=== PATIENT | female | born 1990 | race Caucasian/White ===

== ENCOUNTER 2018-09-02 08:42 | Inpatient (IN) | payer OTHER ==
[2018-09-02] MEDS ORDERED: Lactated Ringer's 1,000 ML IV SCH (09:00)
[2018-09-02 10:47] LABS: BASO # 0.1 K/uL (0.0-0.2); BASO % 0.8 % (0.0-2.0); EOS # 0.1 K/uL (0.0-0.7); EOS % 0.6 % (0.0-4.0); HEMOGLOBIN 11.2 g/dL (11.0-16.0); LYMPH # 2.6 K/uL (1.0-4.3); MEAN CORPUSCULAR HEMOGLOBIN 28.3 pg (27.0-31.0); MEAN CORPUSCULAR HGB CONC 32.9 g/dL (33.0-37.0); MEAN PLATELET VOLUME 8.5 fL (7.2-11.7); MONO # 0.6 K/uL (0.0-0.8); MONO % 6.1 % (0.0-10.0); NEUT # 6.5 K/uL (1.8-7.0); NEUT % 66.5 % (50.0-75.0); RBC 3.95 Mil/uL (3.80-5.20); RED CELL DISTRIBUTION WIDTH 20.6 % (11.5-14.5); WHITE BLOOD COUNT 9.8 K/uL (4.8-10.8)
[2018-09-02 10:48] LABS: URINE BACTERIA RARE (<OCC); URINE BILIRUBIN NEGATIVE (NEGATIVE); URINE BLOOD NEGATIVE (NEGATIVE); URINE CLARITY Clear (Clear); URINE COLOR Straw (YELLOW); URINE GLUCOSE (UA) NORMAL (Normal); URINE LEUKOCYTE ESTERASE TRACE Leu/uL (Negative); URINE PROTEIN NEGATIVE (NEGATIVE); URINE UROBILINOGEN NORMAL mg/dL (0.2-1.0)
[2018-09-02 11:27] LABS: ALBUMIN 3.4 g/dL (3.5-5.0); ALT/SGPT 14 U/L (9-52); AST/SGOT 15 U/L (14-36); BLOOD UREA NITROGEN 5 mg/dL (7-17); GFR NON-AFRICAN AMERICAN > 60
[2018-09-02] MEDS ORDERED: Nalbuphine HCL 10 mg/ml Ampule IVP ONE (15:34)
[2018-09-02] MEDS ORDERED: DiphenhydrAMINE 50 mg/ml Inj IVP STA (15:52)
[2018-09-02] MEDS ORDERED: Oxytocin 30 UNIT 30 UNITS/500 ML BAG IV SCH (19:30)
[2018-09-02] MEDS ORDERED: Bupivacaine HCl/FentaNYL Cit 100 ML EPI ONE (19:51)
[2018-09-02] MEDS ORDERED: Oxytocin 30 UNIT 30 UNITS/500 ML BAG IV ONE (21:11)
[2018-09-03] MEDS ORDERED: Bupivacaine HCl/FentaNYL Cit 100 ML EPI ONE ×3 (03:10→14:23)
--- NOTE | 2018-09-03 09:38 | OBHP ---
Datetime: 09/03/2018 09:37 FHR - Baseline A Provider: 130 Vital Signs Provider: Reviewed; Within Normal Limits NICHD Variability Prov Fetus A: Moderate 6-25bpm FHR Category Provider Fetus A: Category I Dilatation, Provider: 1 Datetime: 09/02/2018 09:20 IP Adm Impression: Term, intrauterine IP Chief Complaint Other: Oligo IP Admit Plan: Admit to unit Admit Comment, IP Provider: Patient is a 28 year old at 38w1d ARSEN 09/15/18 who presents toda y for uterine contractions that started 2 days ago. Patient states that last night contractions were getting stronger and are now 5 minutes apart 07/07 intesnty. She endorses +FM, denies VB or LOF. Issues: Denies OB Hx: 1. 2013 at term, female , unsure of baby's weight, no complications 2. 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, CXR -Plan discussed with Dr Efra Barry DO PGY-2 agree with above pt seen adn examiend sonogram katie 4.3cm, iol for oligoydration cervidl placed then spotnenaousl feel out pt had new cervidli reisrted removed s/p iv pain medciaiton pitocin started s/p pediural cat I Comments, ACOG Physical Exam: VSS Gen: AAOx3 Abd: Soft, gravid Ext: No clubbing, cyanosis, edema SVE: FT/50/-3 Bedsie sonogam vtx, afti 4.3cm IP Hx Assessment: The History has been Reviewed and is Current EGA AdmitDate IP: 38.1 IP Chief Complaint: Uterine contractions; Other NICHD Accel Fetus A IP Provider: 15X15 NICHD Decel Fetus A IP Provider: None Effacement, Provider: 50 Station, Provider: -3
--- NOTE | 2018-09-03 09:41 | OBPN ---
Datetime: 09/03/2018 09:37 IP Procedures: Artificial ROM IP Progress Plan: Continue present management Membranes, Provider: Ruptured Amniotic Fluid Color, Provider: Clear Contraction Comments Provider: q 2 min FHR - Baseline A Provider: 130 Gestation - Est Wks by US: 38.2 Presentation-Admit: Vertex IP Progress Note Comment: pt seen and examiend fo rprogression of laobr s/p epidural VSS VE: /-3 AROM clear IUPC inserted Pitocin as per protoicn _ a/p G2P! @ 38+ wks IOL for oligohdatin cont current mananete Vital Signs Provider: Reviewed; Within Normal Limits FHR Category Provider Fetus A: Category I NICHD Variability Prov Fetus A: Moderate 6-25bpm Dilatation, Provider: 1 Effacement, Provider: 50 Station, Provider: -3 NICHD Decel Fetus A IP Provider: None Datetime: 09/02/2018 09:20 NICHD Accel Fetus A IP Provider: 15X15
--- NOTE | 2018-09-03 09:41 | OBADHP ---
Datetime: 09/03/2018 09:37 Presentation-Admit: Vertex FHR - Baseline A Provider: 130 Amniotic Fluid Color, Provider: Clear Membranes, Provider: Ruptured Contraction Comments Provider: q 2 min Gestation - Est Wks by US: 38.2 Vital Signs Provider: Reviewed; Within Normal Limits NICHD Variability Prov Fetus A: Moderate 6-25bpm FHR Category Provider Fetus A: Category I NICHD Decel Fetus A IP Provider: None Dilatation, Provider: 1 Effacement, Provider: 50 Station, Provider: -3 Datetime: 09/02/2018 09:20 IP Chief Complaint Other: Oligo Admit Comment, IP Provider: Patient is a 28 year old at 38w1d ARSEN 09/15/18 who presents toda y for uterine contractions that started 2 days ago. Patient states that last night contractions were getting stronger and are now 5 minutes apart 07/07 intesnty. She endorses +FM, denies VB or LOF. Issues: Denies OB Hx: 1. 2013 at term, female , unsure of baby's weight, no complications 2. 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, CXR -Plan discussed with Dr Efra Barry DO PGY-2 agree with above pt seen adn examiend sonogram katie 4.3cm, iol for oligoydration cervidl placed then spotnenaousl feel out pt had new cervidli reisrted removed s/p iv pain medciaiton pitocin started s/p pediural cat I Comments, ACOG Physical Exam: VSS Gen: AAOx3 Abd: Soft, gravid Ext: No clubbing, cyanosis, edema SVE: FT/50/-3 Bedsie sonogam vtx, afti 4.3cm IP Hx Assessment: The History has been Reviewed and is Current IP Chief Complaint: Uterine contractions; Other NICHD Accel Fetus A IP Provider: 15X15 EGA AdmitDate IP: 38.1 IP Adm Impression: Term, intrauterine IP Admit Plan: Admit to unit
--- NOTE | 2018-09-03 11:52 | OBPN ---
Datetime: 09/03/2018 11:38 IP Progress Plan: Continue present management Membranes, Provider: Ruptured FHR - Baseline A Provider: 130 Gestation - Est Wks by US: 38.2 Presentation-Admit: Vertex IP Progress Note Comment: pt seen and examiend for progressn of labor c/o pressures/p peidurla VSS VE /-3 arom clear IUPC <200monteviod units Pitocn 14mu/min A/P G2P! @ 38+ wks in labor cont pitocin per fprotocn cont too nad em anlagyeg Vital Signs Provider: Reviewed; Within Normal Limits NICHD Variability Prov Fetus A: Moderate 6-25bpm Dilatation, Provider: 3 Effacement, Provider: 60 Station, Provider: -3 NICHD Decel Fetus A IP Provider: None
[2018-09-03] MEDS ORDERED: Bupivacaine HCl 0.25% PF (10 ml) Inj ONE ×2 (14:26→16:40)
[2018-09-03] MEDS ORDERED: Oxytocin 30 UNIT 30 UNITS/500 ML BAG IV ONE (15:44)
[2018-09-03] MEDS ORDERED: Benzocaine/Menthol 20%-0.5% Topical Spray (60 ml) TOP PRN (18:56)
[2018-09-03] MEDS ORDERED: Oxycodone/Acetaminophen 5/325 mg Tab PO PRN ×2 (18:56)
--- NOTE | 2018-09-03 19:01 | OBDS ---
DELIVERY PERSONNEL Delivery Doctor: Elizabet Newman MD Scrub Nurse: Valencia Tiwari Edging Machine Setter: Federica Beverly RN Anesthesiologist: Deyvi Dixon MD MATERNAL INFORMATION Delivery Anesthesia: Epidural Medications in Delivery: Pitocin RN Comments: to a live baby girl to mother bare abdomen attended to by dr. Rosales and Tereza Jean-Baptiste RN. 9:9. Provider Comments: pt was fully dilated and pushing. verbal consent give for right mediolateral epis tiomy. atrumatic, sponatneous delivery of head in BRITNI position.Nuchal cord noted x 1 reduced. Atrauat aguilar, spontaneous delivery of anterior followed by posterior shoulder followed by delivery of the body . Both oral and nasal passages of the baby were bulb suctioned. umbilcal cord was clamped adn cut adn baby was handed to [facility] on abdomen with RN assistance. Cord blood and cord gases collectd and sent x 2. Spontaneous delivery of intact placenta with membranes. Fundus firm, good hemostasis. Right me diolateral epistiomy noted and repaired with 2-0 hcormic. .No complications live female apgars 9,9 ebl 200ml weight 5lbs ounces no complications LABOR SUMMARY EDC: 09/15/2018 00:00 No. Babies in Womb: 1 Attempted: No Labor Anesthesia: Epidural LABOR INFORMATION Onset of Labor: 09/03/2018 09:00 Complete Dilatation: 09/03/2018 18:10 Cervical Ripening Agents: Cervidil (Annotations: removed by Dr. Newman) Oxytocin: Induction Group B Beta Strep: Negative MEMBRANES Membranes Rupture Method: Artificial Rupture of Membranes: 09/03/2018 09:17 Length of Rupture (hrs): 9.27 Amniotic Fluid Color: Clear Amniotic Fluid Amount: Moderate Amniotic Fluid Odor: None STAGES OF LABOR Stage 1 hrs: 9 Stage 1 min: 10 Stage 2 hrs: 0 Stage 2 min: 23 Stage 3 hrs: 0 Stage 3 min: 7 Total Time in Labor hrs: 9 Total Time in Labor min: 40 VAGINAL DELIVERY Episiotomy: Right Mediolateral Laceration Extension: N/A Laceration Type: None Initial Vag Sponge Count: 10 Final Vag Sponge Count: 10 Initial Vag Sharps Count: 1 Final Vag Sharps Count: 1 Sponge Count Correct: Yes Sharps Count Correct: Yes BABY A INFORMATION Infant Delivery Date/Time: 09/03/2018 18:33 Method of Delivery: Vaginal Born in Route : No : N/A Forceps: N/A Vacuum Extraction: N/A Shoulder Dystocia : No SHOULDER DYSTOCIA BABY A Delivery Date/Time: 09/03/2018 18:33 PRESENTATION/POSITION BABY A Presentation: Cephalic Cephalic Presentation: Vertex Vertex Position: Left Occipital Anterior Breech Presentation: N/A PLACENTA INFORMATION BABY A Placenta Delivery Time : 09/03/2018 18:40 Placenta Method of Delivery: Spontaneous Placenta Status: Delivered SCORES BABY A Heart Rate 1 min: >100 bpm Resp Effort 1 min: Good Cry Reflex Irritability 1 min: Cough or Sneeze or Pulls Away Muscle Tone 1 min: Active Motion Color 1 min: Body [place], Extremities Blue SCORE 1 MIN: 9 Heart Rate 5 min: >100 bpm Resp Effort 5 min: Good Cry Reflex Irritability 5 min: Cough or Sneeze or Pulls Away Muscle Tone 5 min: Active Motion Color 5 min: Body [place], Extremities Blue SCORE 5 MIN: 9 INFORMATION BABY A Gestational Age at Delivery: 38.2 Gestational Status: Term Infant Outcome : Liveborn Infant Condition : Stable Infant Sex: Female IDENTIFICATION/MEDS BABY A ID Band Number: [id number] ID Band Location: Left Leg; Left Arm Sensor Applied: Yes Sensor Number: [id number] Sensor Location : Cord Clamp Vitamin K Given : Not Given Erythromycin Given: Not Given WEIGHT/LENGTH BABY A Infant Birthweight (gms): 2270 Weight (lb): 5 Weight (oz): 0 Infant Length Inches: 18.24 Infant Length cms: 46.3 CORD INFORMATION BABY A No. Cord Vessels: 3 Nuchal Cord : Around Neck x1, Loose Nuchal Cord Other: n/a True Knot: 0 Cord Blood Taken: Yes Suction: Mouth; Nose ASSESSMENT BABY A Infant Complications: None Physical Findings at Delivery: Within Normal Limits Respirations: Appears Normal Manager Pathology/ALS Called : No Infant Care By: and Emily Jean-Baptiste Transferred To: [facility]
--- NOTE | 2018-09-04 04:16 | OBPPN ---
Datetime: 09/04/2018 04:13 PP Pain Prov: Within normal limits PP Nausea Prov: Denies PP Flatus Prov: Yes PP BM Prov: No PP Breasts Prov: Normal PP Heart Prov: Normal PP Lungs Prov: Normal PP Abdomen/Uterus Prov: Normal PP Lochia Prov: Normal PP Vulva/Perineum Prov: Normal PP CVA Tenderness Prov: Normal PP Extremities Prov: Normal PP C/S Incision Prov: Not Applicable PP Progress Prov: Normal PP Impression Prov: Normal progression PP Plan Prov: Continue present management PP Progress Note Prov: pt seen adn examied and reprots pain rlq controlld with medicaion. pt ambuiat n,b odiign, passing flatus, tolerated regular diet. pt denies nay fever, chills, nause, vomiting cp, sob VSS PE GEN NAD AAO x 3 RESP: CTAB: CVS:RRR< +S1/S2 ABDS: soft, NT/ND, +BS, no gurding ,no rebound tendenress ,no rigidity, no uterine tenderss Fundus: firm, below level of umbiulcs VE: minimal lohcia, non foul smelling EXT; no calf tenderness, negative emeka's sign A/P s/p ppd #1 doign well pain mangnet reugla trjaspalet encourage bresat feeidn adn ambluaiton Vital Signs Provider PP: Reviewed; Within Normal Limits
--- NOTE | 2018-09-04 04:16 | OBDCSUM ---
Datetime: 09/04/2018 04:14 Discharged to, Provider: Home Follow up at, Provider: Dr Newman Disch Instr Activity: Normal activity Disch Instr Diet: Regular Discharge Instructions, Provider: Routine instructions given Discharge Diagnosis, Provider: Term Delivered Discharge Time: 09/04/2018 04:14 Follow up in weeks, Provider: 6 weeks Disch Referrals: None Contraception discussed, Prov: Yes Disch Activity Restrictions: No sexual activity; Nothing in vagina - [place], tampons, douche Discharge Comment, Provider: dc in am precautions given Contraception after Delivery: Not Planning to Use
[2018-09-04 07:20] LABS: BASO % 0.2 % (0.0-2.0); EOS # 0.1 K/uL (0.0-0.7); EOS % 0.5 % (0.0-4.0); LYMPH % 23.6 % (20.0-40.0); MEAN CELL VOLUME 85.7 fL (81.0-99.0); MEAN CORPUSCULAR HEMOGLOBIN 28.2 pg (27.0-31.0); MEAN CORPUSCULAR HGB CONC 32.9 g/dL (33.0-37.0); MEAN PLATELET VOLUME 8.5 fL (7.2-11.7); MONO # 1.2 K/uL (0.0-0.8); MONO % 7.3 % (0.0-10.0); NEUT # 11.6 K/uL (1.8-7.0); NEUT % 68.4 % (50.0-75.0); RBC 3.53 Mil/uL (3.80-5.20); RED CELL DISTRIBUTION WIDTH 20.4 % (11.5-14.5)
[2018-09-04] MEDS: Multiple Vitamins Tab PO SCH (09:29)
[2018-09-05 07:18] LABS: BASO % 0.4 % (0.0-2.0); EOS # 0.2 K/uL (0.0-0.7); HEMOGLOBIN 9.9 g/dL (11.0-16.0); LYMPH # 3.4 K/uL (1.0-4.3); LYMPH % 29.9 % (20.0-40.0); MEAN CELL VOLUME 85.6 fL (81.0-99.0); MEAN CORPUSCULAR HEMOGLOBIN 28.2 pg (27.0-31.0); MONO # 0.6 K/uL (0.0-0.8); MONO % 5.2 % (0.0-10.0); NEUT % 62.5 % (50.0-75.0); RBC 3.53 Mil/uL (3.80-5.20); RED CELL DISTRIBUTION WIDTH 20.8 % (11.5-14.5); WHITE BLOOD COUNT 11.2 K/uL (4.8-10.8)
[2018-09-05] MEDS: Multiple Vitamins Tab PO SCH (09:32)
[2018-09-05] MEDS ORDERED: Influenza Vaccine 60 MCG/0.5 ML SYR (3 yr & up) IM ONE (12:16)
[2018-09-05 20:24] VITALS: BP 104/68; PULSE 80; RESP 18; TEMP 97.2; O2SAT 100
--- NOTE | 2018-09-05 20:58 | OBPPN ---
Datetime: 09/05/2018 13:53 PP Pain Prov: Within normal limits PP Nausea Prov: Denies PP Breasts Prov: Not Done PP Heart Prov: Normal PP Lungs Prov: Normal PP Abdomen/Uterus Prov: Normal PP Lochia Prov: Normal PP Vulva/Perineum Prov: Normal PP CVA Tenderness Prov: Normal PP Extremities Prov: Normal PP C/S Incision Prov: Not Applicable PP Progress Prov: Normal PP Comments Phys Exam Prov: Fundus firm and non-tender PP Impression Prov: Normal progression PP Plan Prov: Discharge PP Progress Note Prov: PPD # 2 S/P SD without complications Stable and Satisfactory condition and recovery Demanding D/C home without difficulties Advised to continue PNV daily for 4-6 months Increase po water intake F/up with Dr. Newman in 6 weeks or prior if needed D/C home with instructions and Rx for Motrin as per Dr. Newman IP PP Procedures: None Vital Signs Provider PP: Reviewed; Within Normal Limits
== END 2018-09-05 14:30 | disposition home or self-care (01) | DRG 807 ==
LOC: C.EROB 08:42 → C.4D 08:55 → C.4M 09-03 20:50
PROVIDERS: ADMIT Obstetrics & Gynecology; ATTEND Obstetrics & Gynecology
PROC: 10E0XZZ Delivery of Products of Conception, External Approach (ICD-10-PCS; principal; 2018-09-03)
PROC: 0W8NXZZ Division of Female Perineum, External Approach (ICD-10-PCS; 2018-09-03)
DX: O69.81X0 Labor and delivery complicated by cord around neck, without compression, not applicable or unspecified (principal); Z3A.38 38 weeks gestation of pregnancy; Z86.11 Personal history of tuberculosis; Z37.0 Single live birth